=== PATIENT | male | born 1970 | race Caucasian/White ===

== ENCOUNTER 2021-07-16 12:07 | Inpatient (IN) | payer OTHER ==
[2021-07-16] MEDS ORDERED: MAGNESIUM CITRATE 300 ML BOTTLE PO PRN (12:53)
[2021-07-16] MEDS ORDERED: MAG HYDROX/AL HYDROX/SIMETH 30 ML UNIT-DOSE CUP PO PRN (12:53)
[2021-07-16] MEDS ORDERED: BISMUTH SUBSALICYLATE 262 MG/15 ML BTL PO PRN (12:53)
[2021-07-16] MEDS ORDERED: ACETAMINOPHEN 325 MG TABLET (FP) PO PRN ×2 (12:53)
[2021-07-16] MEDS ORDERED: IBUPROFEN 400 MG TABLET (FP) PO PRN (12:53)
[2021-07-16] MEDS ORDERED: chlordiazePOXIDE HCL 25 MG CAPSULE PO PRN (12:53)
[2021-07-16] MEDS ORDERED: MAGNESIUM HYDROX 2400MG/30ML ORAL SUSPENSION 30 ML CUP PO PRN (12:53)
[2021-07-16] MEDS ORDERED: MENTHOL/PHENOL 1 EACH UD MM PRN (12:53)
[2021-07-16] MEDS ORDERED: LOPERAMIDE HCL 2 MG CAPSULE PO PRN (12:53)
[2021-07-16 13:35] VITALS: BMI 27.8
[2021-07-16] MEDS: PRENATAL VITAMINS W/ FOLIC ACID TABLET (FP) PO SCH (14:29)
[2021-07-16] MEDS: METHOCARBAMOL 500 MG TABLET PO PRN ×2 (14:30→18:20)
[2021-07-16] MEDS: hydrOXYzine PAMOATE 25 MG CAPSULE (FP) PO SCH ×3 (14:32→23:04)
[2021-07-16] MEDS: NICOTINE 7 MG/24 HOURS TOPICAL PATCH TD SCH (14:33)
[2021-07-16] MEDS: chlordiazePOXIDE HCL 25 MG CAPSULE PO SCH ×2 (17:21→23:04)
[2021-07-16 17:49] LABS: HEMATOCRIT 43.4 % (35.4-49); HEMOGLOBIN 14.1 GM/dL (11.7-16.9); MCHC 32.5 g/dl (32.0-35.9); MEAN CELL VOLUME 89.1 fl (80-96); MEAN PLT VOLUME 8.5 fl (7.5-11.1); PLATELET COUNT 333 10^3/uL (134-434); RBC 4.87 M/mm3 (4.00-5.60); RDW 14.6 % (11.9-15.9); WHITE BLOOD COUNT 6.9 K/mm3 (4.0-10.0)
[2021-07-16 17:52] LABS: CALCIUM 9.4 mg/dL (8.5-10.1)
[2021-07-16 17:53] LABS: ALBUMIN 3.9 g/dl (3.4-5.0); BLOOD UREA NITROGEN 11.9 mg/dL (7-18)
[2021-07-16 17:56] LABS: CREATININE 1.2 mg/dL (0.55-1.3)
[2021-07-16 17:58] LABS: BILIRUBIN,TOTAL 0.6 mg/dL (0.2-1); TOT PROT 8.2 g/dl (6.4-8.2)
[2021-07-16] MEDS: THIAMINE HCL 100 MG TABLET (FP) PO SCH (23:04)
[2021-07-16] MEDS: MELATONIN 5 MG TABLETS PO SCH (23:06)
[2021-07-17] MEDS: chlordiazePOXIDE HCL 25 MG CAPSULE PO SCH ×4 (06:30→22:36)
[2021-07-17] MEDS: hydrOXYzine PAMOATE 25 MG CAPSULE (FP) PO SCH ×3 (06:30→13:43)
[2021-07-17] MEDS: METHOCARBAMOL 500 MG TABLET PO PRN (10:08)
[2021-07-17] MEDS: PRENATAL VITAMINS W/ FOLIC ACID TABLET (FP) PO SCH (10:08)
[2021-07-17] MEDS: NICOTINE 7 MG/24 HOURS TOPICAL PATCH TD SCH (10:10)
[2021-07-17] MEDS ORDERED: methaDONE HCL 10 MG TABLET PO SCH (14:00)
[2021-07-17] MEDS ORDERED: methaDONE HCL 10 MG TABLET ONE (14:13)
[2021-07-17] MEDS ORDERED: methaDONE HCL 40 MG DISPERSABLE TABLET ONE (14:14)
[2021-07-17] MEDS: NICOTINE 10 MG CARTRIDGE (INHALER) IH PRN (14:24)
[2021-07-17] MEDS ORDERED: SUVOREXANT 10 MG TABLET PO PRN (22:00)
[2021-07-17] MEDS: THIAMINE HCL 100 MG TABLET (FP) PO SCH (22:35)
[2021-07-17] MEDS: hydrOXYzine PAMOATE 25 MG CAPSULE (FP) PO PRN (22:36)
[2021-07-17] MEDS: MELATONIN 5 MG TABLETS PO SCH (22:43)
[2021-07-18] MEDS ORDERED: methaDONE HCL 10 MG TABLET ONE (04:15)
[2021-07-18] MEDS ORDERED: methaDONE HCL 40 MG DISPERSABLE TABLET ONE (04:16)
[2021-07-18] MEDS: chlordiazePOXIDE HCL 25 MG CAPSULE PO SCH ×4 (05:20→22:32)
[2021-07-18] MEDS: METHOCARBAMOL 500 MG TABLET PO PRN (10:12)
[2021-07-18] MEDS: PRENATAL VITAMINS W/ FOLIC ACID TABLET (FP) PO SCH (10:12)
[2021-07-18] MEDS: ONDANSETRON *ODT* 4 MG TABLET SL PRN (10:13)
[2021-07-18] MEDS: NICOTINE 7 MG/24 HOURS TOPICAL PATCH TD SCH (10:15)
[2021-07-18 10:25] LABS: SGOT/AST 116 U/L (15-37); SGPT/ALT 171 U/L (13-61)
[2021-07-18 14:08] LABS: SARS-CoV-2 NAA Not Detected (Not Detected)
[2021-07-18] MEDS: hydrOXYzine PAMOATE 25 MG CAPSULE (FP) PO PRN (18:07)
[2021-07-18] MEDS: THIAMINE HCL 100 MG TABLET (FP) PO SCH (22:32)
[2021-07-18] MEDS: MELATONIN 5 MG TABLETS PO SCH (22:32)
[2021-07-18] MEDS: SUVOREXANT 15 MG TABLET PO PRN (22:34)
[2021-07-19] MEDS ORDERED: chlordiazePOXIDE HCL 10 MG CAPSULE PO PRN
[2021-07-19] MEDS ORDERED: methaDONE HCL 10 MG TABLET ONE (04:08)
[2021-07-19] MEDS ORDERED: methaDONE HCL 40 MG DISPERSABLE TABLET ONE (04:09)
[2021-07-19] MEDS: chlordiazePOXIDE HCL 10 MG CAPSULE PO SCH ×4 (05:36→22:20)
[2021-07-19] MEDS: hydrOXYzine PAMOATE 25 MG CAPSULE (FP) PO PRN ×2 (10:17→17:54)
[2021-07-19] MEDS: NICOTINE 7 MG/24 HOURS TOPICAL PATCH TD SCH (10:17)
[2021-07-19] MEDS: PRENATAL VITAMINS W/ FOLIC ACID TABLET (FP) PO SCH (10:17)
[2021-07-19] MEDS: METHOCARBAMOL 500 MG TABLET PO PRN (10:19)
[2021-07-19] MEDS: ONDANSETRON *ODT* 4 MG TABLET SL PRN (12:38)
[2021-07-19] MEDS: NICOTINE 10 MG CARTRIDGE (INHALER) IH PRN (12:39)
[2021-07-19] MEDS: THIAMINE HCL 100 MG TABLET (FP) PO SCH (22:20)
[2021-07-19] MEDS: MELATONIN 5 MG TABLETS PO SCH (22:20)
[2021-07-20] MEDS ORDERED: methaDONE HCL 10 MG TABLET ONE (05:32)
[2021-07-20] MEDS ORDERED: methaDONE HCL 40 MG DISPERSABLE TABLET ONE (05:32)
[2021-07-20] MEDS: chlordiazePOXIDE HCL 10 MG CAPSULE PO SCH ×2 (05:33→17:39)
[2021-07-20] MEDS: NICOTINE 7 MG/24 HOURS TOPICAL PATCH TD SCH (10:25)
[2021-07-20] MEDS: PRENATAL VITAMINS W/ FOLIC ACID TABLET (FP) PO SCH (10:25)
[2021-07-20] MEDS: METHOCARBAMOL 500 MG TABLET PO PRN (10:25)
[2021-07-20] MEDS: hydrOXYzine PAMOATE 25 MG CAPSULE (FP) PO PRN (10:25)
[2021-07-20] MEDS: NICOTINE 10 MG CARTRIDGE (INHALER) IH PRN (10:26)
[2021-07-20] MEDS: SUVOREXANT 15 MG TABLET PO PRN (22:09)
[2021-07-20] MEDS: THIAMINE HCL 100 MG TABLET (FP) PO SCH (22:11)
[2021-07-20] MEDS: MELATONIN 5 MG TABLETS PO SCH (22:11)
[2021-07-21] MEDS ORDERED: methaDONE HCL 10 MG TABLET ONE (03:22)
[2021-07-21] MEDS ORDERED: methaDONE HCL 40 MG DISPERSABLE TABLET ONE (03:23)
[2021-07-21] MEDS ORDERED: chlordiazePOXIDE HCL 10 MG CAPSULE PO ONE (05:00)
[2021-07-21 09:04] VITALS: BP 119/88; PULSE 76; TEMP 97.3
[2021-07-21] MEDS: PRENATAL VITAMINS W/ FOLIC ACID TABLET (FP) PO SCH (10:26)
[2021-07-21] MEDS: NICOTINE 7 MG/24 HOURS TOPICAL PATCH TD SCH (10:26)
[2021-07-21] MEDS: NICOTINE 10 MG CARTRIDGE (INHALER) IH PRN (10:28)
== END 2021-07-21 12:35 | disposition other institution (70) | DRG 897 ==
LOC: YASAS 12:07 → Y6N 14:05
PROVIDERS: ADMIT Allergy & Immunology; ATTEND Allergy & Immunology
PROC: HZ2ZZZZ Detoxification Services for Substance Abuse Treatment (ICD-10-PCS; principal; 2021-07-16)
DX: F10.230 Alcohol dependence with withdrawal, uncomplicated (principal); F11.20 Opioid dependence, uncomplicated; F14.20 Cocaine dependence, uncomplicated; F13.20 Sedative, hypnotic or anxiolytic dependence, uncomplicated; F17.210 Nicotine dependence, cigarettes, uncomplicated; F19.24 Other psychoactive substance dependence with psychoactive substance-induced mood disorder; F43.10 Post-traumatic stress disorder, unspecified; R76.11 Nonspecific reaction to tuberculin skin test without active tuberculosis; R74.01 Elevation of levels of liver transaminase levels; Z62.810 Personal history of physical and sexual abuse in childhood
CPT/HCPCS: 36415; 71046-TC-FY; 80053; 82962; 84450; 84460; 85027; 86780; 87811; 93005; 93010; C9803-CS; Q0162; U0003; U0005

== ENCOUNTER 2021-07-21 12:53 | Inpatient (IN) | payer OTHER ==
[2021-07-21] MEDS ORDERED: MAGNESIUM CITRATE 300 ML BOTTLE PO PRN (12:56)
[2021-07-21] MEDS ORDERED: P-EPHED 60MG/TRIPROLIDI 2.5MG TABLET PO PRN (12:56)
[2021-07-21] MEDS ORDERED: guaiFENesin 200 MG/10 ML 10 ML UNIT-DOSE CUPS PO PRN (12:56)
[2021-07-21] MEDS ORDERED: LOPERAMIDE HCL 2 MG CAPSULE PO PRN (12:56)
[2021-07-21] MEDS ORDERED: MAGNESIUM HYDROX 2400MG/30ML ORAL SUSPENSION 30 ML CUP PO PRN (12:56)
[2021-07-21] MEDS ORDERED: IBUPROFEN 400 MG TABLET (FP) PO PRN (12:56)
[2021-07-21] MEDS ORDERED: MAG HYDROX/AL HYDROX/SIMETH 30 ML UNIT-DOSE CUP PO PRN (12:56)
[2021-07-21] MEDS: hydrOXYzine PAMOATE 25 MG CAPSULE (FP) PO SCH ×3 (14:14→21:39)
[2021-07-21] MEDS: MELATONIN 5 MG TABLETS PO SCH (21:22)
[2021-07-21] MEDS: THIAMINE HCL 100 MG TABLET (FP) PO SCH (21:22)
[2021-07-22] MEDS ORDERED: methaDONE HCL 10 MG TABLET ONE (04:41)
[2021-07-22] MEDS ORDERED: methaDONE HCL 40 MG DISPERSABLE TABLET ONE (04:41)
[2021-07-22] MEDS ORDERED: methaDONE HCL 40 MG DISPERSABLE TABLET PO SCH (06:00)
[2021-07-22] MEDS: hydrOXYzine PAMOATE 25 MG CAPSULE (FP) PO SCH ×2 (06:31→10:09)
[2021-07-22] MEDS: NICOTINE 7 MG/24 HOURS TOPICAL PATCH TD SCH (10:09)
[2021-07-22] MEDS: PRENATAL VITAMINS W/ FOLIC ACID TABLET (FP) PO SCH (10:09)
[2021-07-22] MEDS: NICOTINE 10 MG CARTRIDGE (INHALER) IH PRN (10:09)
[2021-07-22] MEDS ORDERED: hydrOXYzine PAMOATE 25 MG CAPSULE (FP) PO PRN (11:04)
[2021-07-22] MEDS: THIAMINE HCL 100 MG TABLET (FP) PO SCH (21:37)
[2021-07-22] MEDS: MELATONIN 5 MG TABLETS PO SCH (21:37)
[2021-07-23] MEDS ORDERED: methaDONE HCL 10 MG TABLET ONE (05:10)
[2021-07-23] MEDS ORDERED: methaDONE HCL 40 MG DISPERSABLE TABLET ONE (05:10)
[2021-07-23] MEDS: NICOTINE 7 MG/24 HOURS TOPICAL PATCH TD SCH (11:36)
[2021-07-23] MEDS: PRENATAL VITAMINS W/ FOLIC ACID TABLET (FP) PO SCH (11:36)
[2021-07-23] MEDS: NICOTINE 10 MG CARTRIDGE (INHALER) IH PRN (12:04)
[2021-07-23] MEDS: THIAMINE HCL 100 MG TABLET (FP) PO SCH (21:08)
[2021-07-23] MEDS: MELATONIN 5 MG TABLETS PO SCH (21:08)
[2021-07-24] MEDS ORDERED: methaDONE HCL 10 MG TABLET ONE (03:37)
[2021-07-24] MEDS ORDERED: methaDONE HCL 40 MG DISPERSABLE TABLET ONE (03:38)
[2021-07-24] MEDS: NICOTINE 10 MG CARTRIDGE (INHALER) IH PRN ×2 (10:43→17:07)
[2021-07-24] MEDS: NICOTINE 7 MG/24 HOURS TOPICAL PATCH TD SCH (10:43)
[2021-07-24] MEDS: PRENATAL VITAMINS W/ FOLIC ACID TABLET (FP) PO SCH (10:43)
[2021-07-24] MEDS: THIAMINE HCL 100 MG TABLET (FP) PO SCH (21:12)
[2021-07-24] MEDS: MELATONIN 5 MG TABLETS PO SCH (21:12)
[2021-07-25] MEDS ORDERED: methaDONE HCL 10 MG TABLET ONE (03:56)
[2021-07-25] MEDS ORDERED: methaDONE HCL 40 MG DISPERSABLE TABLET ONE (03:56)
[2021-07-25 07:07] LABS: SARS-CoV-2 NAA Not Detected (Not Detected)
[2021-07-25] MEDS: PRENATAL VITAMINS W/ FOLIC ACID TABLET (FP) PO SCH (09:44)
[2021-07-25] MEDS: NICOTINE 7 MG/24 HOURS TOPICAL PATCH TD SCH (09:44)
[2021-07-25] MEDS: NICOTINE 10 MG CARTRIDGE (INHALER) IH PRN (09:45)
[2021-07-25] MEDS ORDERED: PERMETHRIN 5% TOPICAL CREAM 60 GM TUBE TP ONE ×2 (13:15→20:00)
[2021-07-25] MEDS ORDERED: MINERAL OIL/PETROLAT/WATER TOPICAL CREAM 454 GM JAR TP PRN (13:16)
[2021-07-25] MEDS: hydrOXYzine PAMOATE 25 MG CAPSULE (FP) PO SCH ×4 (15:00→21:15)
[2021-07-25] MEDS: MINERAL OIL/PETROLAT/WATER TOPICAL CREAM 113 GM JAR TP SCH ×2 (15:23→21:16)
[2021-07-25] MEDS: THIAMINE HCL 100 MG TABLET (FP) PO SCH (21:15)
[2021-07-25] MEDS: MELATONIN 5 MG TABLETS PO SCH (21:15)
[2021-07-26] MEDS ORDERED: methaDONE HCL 10 MG TABLET ONE (03:36)
[2021-07-26] MEDS ORDERED: methaDONE HCL 40 MG DISPERSABLE TABLET ONE (03:37)
[2021-07-26] MEDS: hydrOXYzine PAMOATE 25 MG CAPSULE (FP) PO SCH ×2 (05:58→10:19)
[2021-07-26] MEDS: PRENATAL VITAMINS W/ FOLIC ACID TABLET (FP) PO SCH (10:19)
[2021-07-26] MEDS: MINERAL OIL/PETROLAT/WATER TOPICAL CREAM 113 GM JAR TP SCH ×3 (10:20→21:25)
[2021-07-26] MEDS: NICOTINE 7 MG/24 HOURS TOPICAL PATCH TD SCH (10:20)
[2021-07-26] MEDS ORDERED: ONDANSETRON *ODT* 4 MG TABLET SL ONE (11:30)
[2021-07-26] MEDS: MELATONIN 5 MG TABLETS PO SCH (21:25)
[2021-07-26] MEDS: THIAMINE HCL 100 MG TABLET (FP) PO SCH (21:26)
[2021-07-27] MEDS ORDERED: methaDONE HCL 40 MG DISPERSABLE TABLET ONE (04:11)
[2021-07-27] MEDS ORDERED: methaDONE HCL 10 MG TABLET ONE (04:11)
[2021-07-27] MEDS: COLLOIDAL OATMEAL 1 BAR EACH TP PRN (07:27)
[2021-07-27] MEDS: PRENATAL VITAMINS W/ FOLIC ACID TABLET (FP) PO SCH ×2 (10:26→10:28)
[2021-07-27] MEDS: NICOTINE 7 MG/24 HOURS TOPICAL PATCH TD SCH (10:26)
[2021-07-27] MEDS: MINERAL OIL/PETROLAT/WATER TOPICAL CREAM 113 GM JAR TP SCH ×2 (10:26→21:41)
[2021-07-27] MEDS: NICOTINE 10 MG CARTRIDGE (INHALER) IH PRN (10:28)
[2021-07-27] MEDS: THIAMINE HCL 100 MG TABLET (FP) PO SCH (21:42)
[2021-07-27] MEDS: MELATONIN 5 MG TABLETS PO SCH (21:42)
[2021-07-28] MEDS ORDERED: methaDONE HCL 40 MG DISPERSABLE TABLET ONE (05:10)
[2021-07-28] MEDS ORDERED: methaDONE HCL 10 MG TABLET ONE (05:10)
[2021-07-28] MEDS: MINERAL OIL/PETROLAT/WATER TOPICAL CREAM 113 GM JAR TP SCH ×2 (09:25→21:29)
[2021-07-28] MEDS: PRENATAL VITAMINS W/ FOLIC ACID TABLET (FP) PO SCH (09:25)
[2021-07-28] MEDS: NICOTINE 7 MG/24 HOURS TOPICAL PATCH TD SCH (09:26)
[2021-07-28] MEDS: NICOTINE 10 MG CARTRIDGE (INHALER) IH PRN (16:52)
[2021-07-28] MEDS: MELATONIN 5 MG TABLETS PO SCH (21:29)
[2021-07-28] MEDS: THIAMINE HCL 100 MG TABLET (FP) PO SCH (21:29)
[2021-07-29] MEDS ORDERED: methaDONE HCL 40 MG DISPERSABLE TABLET ONE (04:04)
[2021-07-29] MEDS ORDERED: methaDONE HCL 10 MG TABLET ONE (04:04)
[2021-07-29] MEDS: NICOTINE 10 MG CARTRIDGE (INHALER) IH PRN ×2 (06:26→10:34)
[2021-07-29] MEDS: MINERAL OIL/PETROLAT/WATER TOPICAL CREAM 113 GM JAR TP SCH ×2 (10:33→21:36)
[2021-07-29] MEDS: PRENATAL VITAMINS W/ FOLIC ACID TABLET (FP) PO SCH (10:33)
[2021-07-29] MEDS: NICOTINE 7 MG/24 HOURS TOPICAL PATCH TD SCH (10:34)
[2021-07-29] MEDS ORDERED: BACITRACIN 15 GM TUBE TOPICAL OINTMENT TP SCH (13:30)
[2021-07-29] MEDS ORDERED: BACITRACIN 0.9 GM PACKET TP SCH (14:15)
[2021-07-29] MEDS: THIAMINE HCL 100 MG TABLET (FP) PO SCH (21:35)
[2021-07-29] MEDS: MELATONIN 5 MG TABLETS PO SCH (21:35)
[2021-07-29] MEDS: COLLOIDAL OATMEAL 1 BAR EACH TP PRN (21:37)
[2021-07-30] MEDS ORDERED: methaDONE HCL 10 MG TABLET ONE (05:19)
[2021-07-30] MEDS ORDERED: methaDONE HCL 40 MG DISPERSABLE TABLET ONE (05:19)
[2021-07-30 07:06] VITALS: BP 143/97; PULSE 77; TEMP 98.1
== END 2021-07-30 09:36 | disposition home or self-care (01) | DRG 895 ==
LOC: YASAS 12:53 → Y3W 12:54
PROVIDERS: ADMIT Allergy & Immunology; ATTEND Allergy & Immunology
PROC: HZ42ZZZ Group Counseling for Substance Abuse Treatment, Cognitive-Behavioral (ICD-10-PCS; principal; 2021-07-21)
DX: F10.20 Alcohol dependence, uncomplicated (principal); F11.20 Opioid dependence, uncomplicated; F14.20 Cocaine dependence, uncomplicated; F17.210 Nicotine dependence, cigarettes, uncomplicated; J34.89 Other specified disorders of nose and nasal sinuses; L53.9 Erythematous condition, unspecified; R74.01 Elevation of levels of liver transaminase levels
CPT/HCPCS: 36415; 84450; C9803-CS; Q0162; U0003; U0005

== ENCOUNTER 2023-02-04 18:44 | Inpatient (IN) | payer OTHER ==
[2023-02-04 19:54] VITALS: BMI 25.7
[2023-02-05] MEDS ORDERED: COLLOIDAL OATMEAL 1 BAR EACH TP PRN (00:04)
[2023-02-05] MEDS ORDERED: BENZONATATE 200 MG CAPSULE PO PRN (00:04)
[2023-02-05] MEDS ORDERED: BENZOCAINE/MENTHOL (CHLORASEPTIC ) LOZENGE MM PRN (00:04)
[2023-02-05] MEDS ORDERED: hydrOXYzine PAMOATE 25 MG CAPSULE (FP) PO PRN (00:04)
[2023-02-05] MEDS ORDERED: METHOCARBAMOL 500 MG TABLET PO PRN (00:04)
[2023-02-05] MEDS ORDERED: IBUPROFEN 600 MG TABLET (FP) PO PRN (00:04)
[2023-02-05] MEDS ORDERED: P-EPHED 60MG/TRIPROLIDI 2.5MG TABLET PO PRN (00:04)
[2023-02-05] MEDS ORDERED: NALOXONE HCL (KLOXXADO) 8 MG SPRAY NS PRN (00:04)
[2023-02-05] MEDS ORDERED: POLYETHYLENE GLYCOL (HEALTHYLAX) 3350 17 GM PACKET PO PRN (00:04)
[2023-02-05] MEDS ORDERED: guaiFENesin 600 MG TABLET.ER (FP) PO PRN (00:04)
[2023-02-05] MEDS ORDERED: NICOTINE POLACRILEX 2 MG GUM BUC PRN (00:04)
[2023-02-05] MEDS ORDERED: NALOXONE HCL 0.4 MG/ML VIAL IVPUSH PRN (00:04)
[2023-02-05] MEDS ORDERED: ACETAMINOPHEN 325 MG TABLET (FP) PO PRN (00:04)
[2023-02-05] MEDS ORDERED: MAG HYDROX/AL HYDROX/SIMETH 30 ML UNIT-DOSE CUP PO PRN (00:04)
[2023-02-05] MEDS ORDERED: LOPERAMIDE HCL 2 MG CAPSULE PO PRN (00:04)
[2023-02-05] MEDS ORDERED: MAGNESIUM HYDROX 2400MG/30ML ORAL SUSPENSION 30 ML CUP PO PRN (00:04)
[2023-02-05] MEDS ORDERED: IBUPROFEN 400 MG TABLET (FP) PO PRN (00:04)
[2023-02-05] MEDS ORDERED: methaDONE HCL 10 MG TABLET PO SCH (08:15)
[2023-02-05] MEDS: PRENATAL VITAMINS W/ FOLIC ACID TABLET (FP) PO SCH (09:04)
[2023-02-05] MEDS: clonazePAM 0.5 MG ODT TABLETS SL SCH ×2 (11:05→21:20)
[2023-02-05] MEDS: MELATONIN 5 MG TABLETS PO SCH (21:21)
[2023-02-05] MEDS: THIAMINE HCL 100 MG TABLET (FP) PO SCH (21:21)
[2023-02-05] MEDS ORDERED: MELATONIN 5 MG TABLETS PO SCH (22:00)
[2023-02-06] MEDS: PRENATAL VITAMINS W/ FOLIC ACID TABLET (FP) PO SCH (09:57)
[2023-02-06] MEDS: clonazePAM 0.5 MG ODT TABLETS SL SCH ×2 (09:58→21:28)
[2023-02-06] MEDS: MELATONIN 5 MG TABLETS PO SCH (21:28)
[2023-02-06] MEDS: THIAMINE HCL 100 MG TABLET (FP) PO SCH (21:29)
[2023-02-07] MEDS: PRENATAL VITAMINS W/ FOLIC ACID TABLET (FP) PO SCH (10:28)
[2023-02-07] MEDS: clonazePAM 0.5 MG ODT TABLETS SL SCH ×2 (10:28→21:38)
[2023-02-07] MEDS: TENOFOVIR ALAFENAMIDE 25 MG PO SCH (10:58)
[2023-02-07] MEDS: MELATONIN 5 MG TABLETS PO SCH (21:36)
[2023-02-07] MEDS: THIAMINE HCL 100 MG TABLET (FP) PO SCH (21:38)
[2023-02-08] MEDS: TENOFOVIR ALAFENAMIDE 25 MG PO SCH (07:04)
[2023-02-08] MEDS: PRENATAL VITAMINS W/ FOLIC ACID TABLET (FP) PO SCH (10:03)
[2023-02-08] MEDS: clonazePAM 0.5 MG ODT TABLETS SL SCH ×2 (10:03→21:31)
[2023-02-08] MEDS: MELATONIN 5 MG TABLETS PO SCH (21:31)
[2023-02-08] MEDS: THIAMINE HCL 100 MG TABLET (FP) PO SCH (21:31)
[2023-02-09] MEDS: TENOFOVIR ALAFENAMIDE 25 MG PO SCH (07:03)
[2023-02-09] MEDS: clonazePAM 0.5 MG ODT TABLETS SL SCH ×2 (10:00→21:26)
[2023-02-09] MEDS: PRENATAL VITAMINS W/ FOLIC ACID TABLET (FP) PO SCH (10:00)
[2023-02-09] MEDS: CEPHALEXIN MONOHYDRATE 500 MG CAPSULE (UD) PO SCH ×2 (12:31→21:26)
[2023-02-09] MEDS: THIAMINE HCL 100 MG TABLET (FP) PO SCH (21:26)
[2023-02-09] MEDS: MELATONIN 5 MG TABLETS PO SCH (21:27)
[2023-02-09] MEDS: BACITRACIN 0.9 GM PACKET TP SCH (21:27)
[2023-02-10] MEDS: TENOFOVIR ALAFENAMIDE 25 MG PO SCH (07:05)
[2023-02-10] MEDS: clonazePAM 0.5 MG ODT TABLETS SL SCH ×2 (09:52→21:24)
[2023-02-10] MEDS: PRENATAL VITAMINS W/ FOLIC ACID TABLET (FP) PO SCH (09:52)
[2023-02-10] MEDS: BACITRACIN 0.9 GM PACKET TP SCH ×2 (09:53→21:24)
[2023-02-10] MEDS: CEPHALEXIN MONOHYDRATE 500 MG CAPSULE (UD) PO SCH (09:53)
[2023-02-10] MEDS: MELATONIN 5 MG TABLETS PO SCH (21:24)
[2023-02-10] MEDS: THIAMINE HCL 100 MG TABLET (FP) PO SCH (21:24)
[2023-02-11] MEDS: TENOFOVIR ALAFENAMIDE 25 MG PO SCH (07:02)
[2023-02-11] MEDS: PRENATAL VITAMINS W/ FOLIC ACID TABLET (FP) PO SCH (09:53)
[2023-02-11] MEDS: clonazePAM 0.5 MG ODT TABLETS SL SCH ×2 (09:53→21:02)
[2023-02-11] MEDS: BACITRACIN 0.9 GM PACKET TP SCH ×2 (09:54→21:02)
[2023-02-11] MEDS: MELATONIN 5 MG TABLETS PO SCH (21:02)
[2023-02-11] MEDS: THIAMINE HCL 100 MG TABLET (FP) PO SCH (21:02)
[2023-02-12] MEDS: TENOFOVIR ALAFENAMIDE 25 MG PO SCH (07:01)
[2023-02-12] MEDS: clonazePAM 0.5 MG ODT TABLETS SL SCH ×2 (10:05→21:31)
[2023-02-12] MEDS: BACITRACIN 0.9 GM PACKET TP SCH ×2 (10:08→21:31)
[2023-02-12] MEDS: PRENATAL VITAMINS W/ FOLIC ACID TABLET (FP) PO SCH (10:09)
[2023-02-12] MEDS: THIAMINE HCL 100 MG TABLET (FP) PO SCH (21:31)
[2023-02-12] MEDS: MELATONIN 5 MG TABLETS PO SCH (21:31)
[2023-02-13] MEDS: TENOFOVIR ALAFENAMIDE 25 MG PO SCH (07:12)
[2023-02-13] MEDS: clonazePAM 0.5 MG ODT TABLETS SL SCH ×2 (10:02→21:23)
[2023-02-13] MEDS: PRENATAL VITAMINS W/ FOLIC ACID TABLET (FP) PO SCH (10:02)
[2023-02-13] MEDS: BACITRACIN 0.9 GM PACKET TP SCH ×2 (10:03→21:23)
[2023-02-13] MEDS: THIAMINE HCL 100 MG TABLET (FP) PO SCH (21:23)
[2023-02-13] MEDS: MELATONIN 5 MG TABLETS PO SCH (21:23)
[2023-02-14] MEDS: TENOFOVIR ALAFENAMIDE 25 MG PO SCH (07:03)
[2023-02-14] MEDS: PRENATAL VITAMINS W/ FOLIC ACID TABLET (FP) PO SCH (09:59)
[2023-02-14] MEDS: clonazePAM 0.5 MG ODT TABLETS SL SCH ×2 (09:59→22:05)
[2023-02-14] MEDS: BACITRACIN 0.9 GM PACKET TP SCH ×2 (10:00→22:05)
[2023-02-14] MEDS: MELATONIN 5 MG TABLETS PO SCH (22:05)
[2023-02-14] MEDS: THIAMINE HCL 100 MG TABLET (FP) PO SCH (22:05)
[2023-02-15] MEDS: TENOFOVIR ALAFENAMIDE 25 MG PO SCH (07:02)
[2023-02-15] MEDS: PRENATAL VITAMINS W/ FOLIC ACID TABLET (FP) PO SCH (10:01)
[2023-02-15] MEDS: clonazePAM 0.5 MG ODT TABLETS SL SCH ×2 (10:02→21:11)
[2023-02-15] MEDS: BACITRACIN 0.9 GM PACKET TP SCH ×2 (10:02→21:11)
[2023-02-15] MEDS: MELATONIN 5 MG TABLETS PO SCH (21:10)
[2023-02-15] MEDS: THIAMINE HCL 100 MG TABLET (FP) PO SCH (21:11)
[2023-02-16] MEDS: TENOFOVIR ALAFENAMIDE 25 MG PO SCH (07:03)
[2023-02-16] MEDS: PRENATAL VITAMINS W/ FOLIC ACID TABLET (FP) PO SCH (10:13)
[2023-02-16] MEDS: clonazePAM 0.5 MG ODT TABLETS SL SCH ×2 (10:13→21:24)
[2023-02-16] MEDS: BACITRACIN 0.9 GM PACKET TP SCH ×2 (10:14→21:24)
[2023-02-16] MEDS: THIAMINE HCL 100 MG TABLET (FP) PO SCH (21:24)
[2023-02-16] MEDS: MELATONIN 5 MG TABLETS PO SCH (21:24)
[2023-02-17] MEDS: TENOFOVIR ALAFENAMIDE 25 MG PO SCH (07:54)
[2023-02-17] MEDS: clonazePAM 0.5 MG ODT TABLETS SL SCH ×2 (10:04→21:17)
[2023-02-17] MEDS: PRENATAL VITAMINS W/ FOLIC ACID TABLET (FP) PO SCH (10:04)
[2023-02-17] MEDS: BACITRACIN 0.9 GM PACKET TP SCH ×2 (10:05→21:17)
[2023-02-17] MEDS: MELATONIN 5 MG TABLETS PO SCH (21:17)
[2023-02-17] MEDS: THIAMINE HCL 100 MG TABLET (FP) PO SCH (21:17)
[2023-02-18] MEDS: TENOFOVIR ALAFENAMIDE 25 MG PO SCH (07:05)
[2023-02-18] MEDS: clonazePAM 0.5 MG ODT TABLETS SL SCH ×2 (09:10→21:05)
[2023-02-18] MEDS: BACITRACIN 0.9 GM PACKET TP SCH ×2 (09:11→21:04)
[2023-02-18] MEDS: PRENATAL VITAMINS W/ FOLIC ACID TABLET (FP) PO SCH (09:11)
[2023-02-18] MEDS: MELATONIN 5 MG TABLETS PO SCH (21:04)
[2023-02-18] MEDS: THIAMINE HCL 100 MG TABLET (FP) PO SCH (21:05)
[2023-02-19] MEDS: TENOFOVIR ALAFENAMIDE 25 MG PO SCH (07:01)
[2023-02-19] MEDS: PRENATAL VITAMINS W/ FOLIC ACID TABLET (FP) PO SCH (10:25)
[2023-02-19] MEDS: clonazePAM 0.5 MG ODT TABLETS SL SCH ×2 (10:26→21:33)
[2023-02-19] MEDS: BACITRACIN 0.9 GM PACKET TP SCH ×2 (10:26→21:32)
[2023-02-19] MEDS: MELATONIN 5 MG TABLETS PO SCH (21:32)
[2023-02-19] MEDS: THIAMINE HCL 100 MG TABLET (FP) PO SCH (21:32)
[2023-02-20] MEDS: TENOFOVIR ALAFENAMIDE 25 MG PO SCH (07:06)
[2023-02-20] MEDS: clonazePAM 0.5 MG ODT TABLETS SL SCH ×2 (10:12→21:26)
[2023-02-20] MEDS: BACITRACIN 0.9 GM PACKET TP SCH ×2 (10:13→21:26)
[2023-02-20] MEDS: PRENATAL VITAMINS W/ FOLIC ACID TABLET (FP) PO SCH (10:13)
[2023-02-20] MEDS: THIAMINE HCL 100 MG TABLET (FP) PO SCH (21:26)
[2023-02-20] MEDS: MELATONIN 5 MG TABLETS PO SCH (21:26)
[2023-02-21] MEDS: TENOFOVIR ALAFENAMIDE 25 MG PO SCH (07:14)
[2023-02-21] MEDS: BACITRACIN 0.9 GM PACKET TP SCH ×2 (10:10→21:10)
[2023-02-21] MEDS: clonazePAM 0.5 MG ODT TABLETS SL SCH ×2 (10:10→21:11)
[2023-02-21] MEDS: PRENATAL VITAMINS W/ FOLIC ACID TABLET (FP) PO SCH (10:10)
[2023-02-21] MEDS: THIAMINE HCL 100 MG TABLET (FP) PO SCH (21:11)
[2023-02-21] MEDS: MELATONIN 5 MG TABLETS PO SCH (21:11)
[2023-02-22] MEDS: TENOFOVIR ALAFENAMIDE 25 MG PO SCH (07:28)
[2023-02-22] MEDS: clonazePAM 0.5 MG ODT TABLETS SL SCH ×2 (10:03→21:15)
[2023-02-22] MEDS: BACITRACIN 0.9 GM PACKET TP SCH ×2 (10:03→21:13)
[2023-02-22] MEDS: PRENATAL VITAMINS W/ FOLIC ACID TABLET (FP) PO SCH (10:03)
[2023-02-22] MEDS: THIAMINE HCL 100 MG TABLET (FP) PO SCH (21:13)
[2023-02-22] MEDS: MELATONIN 5 MG TABLETS PO SCH (21:13)
[2023-02-23] MEDS: TENOFOVIR ALAFENAMIDE 25 MG PO SCH (07:11)
[2023-02-23] MEDS: PRENATAL VITAMINS W/ FOLIC ACID TABLET (FP) PO SCH (10:11)
[2023-02-23] MEDS: BACITRACIN 0.9 GM PACKET TP SCH ×2 (10:11→21:37)
[2023-02-23] MEDS: clonazePAM 0.5 MG ODT TABLETS SL SCH ×2 (10:12→21:37)
[2023-02-23] MEDS: THIAMINE HCL 100 MG TABLET (FP) PO SCH (21:37)
[2023-02-23] MEDS: MELATONIN 5 MG TABLETS PO SCH (21:37)
[2023-02-24] MEDS: TENOFOVIR ALAFENAMIDE 25 MG PO SCH (07:08)
[2023-02-24] MEDS: PRENATAL VITAMINS W/ FOLIC ACID TABLET (FP) PO SCH (10:04)
[2023-02-24] MEDS: clonazePAM 0.5 MG ODT TABLETS SL SCH ×2 (10:05→21:09)
[2023-02-24] MEDS: BACITRACIN 0.9 GM PACKET TP SCH ×2 (10:05→21:09)
[2023-02-24] MEDS: MELATONIN 5 MG TABLETS PO SCH (21:09)
[2023-02-24] MEDS: THIAMINE HCL 100 MG TABLET (FP) PO SCH (21:09)
[2023-02-25 07:13] VITALS: BP 112/74; PULSE 65; RESP 18; TEMP 97.5
[2023-02-25] MEDS: TENOFOVIR ALAFENAMIDE 25 MG PO SCH (07:44)
== END 2023-02-25 08:55 | disposition home or self-care (01) | DRG 895 ==
LOC: YASAS 18:44 → Y5N 23:55
PROVIDERS: ADMIT Allergy & Immunology; ATTEND Psychiatry & Neurology Pain Medicine
PROC: HZ42ZZZ Group Counseling for Substance Abuse Treatment, Cognitive-Behavioral (ICD-10-PCS; principal; 2023-02-04)
DX: F10.20 Alcohol dependence, uncomplicated (principal); F11.20 Opioid dependence, uncomplicated; F14.20 Cocaine dependence, uncomplicated; Z59.00 Homelessness unspecified; F17.210 Nicotine dependence, cigarettes, uncomplicated; B86 Scabies; Z62.810 Personal history of physical and sexual abuse in childhood; Z86.59 Personal history of other mental and behavioral disorders; Z86.19 Personal history of other infectious and parasitic diseases; Z86.11 Personal history of tuberculosis; Z86.79 Personal history of other diseases of the circulatory system; Z56.0 Unemployment, unspecified
CPT/HCPCS: 87635

== ENCOUNTER 2024-07-22 11:51 | Inpatient (IN) | payer OTHER ==
[2024-07-22 12:04] VITALS: BMI 22.6
[2024-07-22] MEDS ORDERED: ACETAMINOPHEN 325 MG TABLET (FP) PO PRN (13:55)
[2024-07-22] MEDS ORDERED: LOPERAMIDE HCL 2 MG CAPSULE PO PRN (13:55)
[2024-07-22] MEDS ORDERED: guaiFENesin 600 MG TABLET.ER (FP) PO PRN (13:55)
[2024-07-22] MEDS ORDERED: POLYETHYLENE GLYCOL (HEALTHYLAX) 3350 17 GM PACKET PO PRN (13:55)
[2024-07-22] MEDS ORDERED: IBUPROFEN 400 MG TABLET (FP) PO PRN (13:55)
[2024-07-22] MEDS ORDERED: BENZONATATE 200 MG CAPSULE PO PRN (13:55)
[2024-07-22] MEDS ORDERED: MAG HYDROX/AL HYDROX/SIMETH 30 ML UNIT-DOSE CUP PO PRN (13:55)
[2024-07-22] MEDS ORDERED: BENZOCAINE/MENTHOL (CHLORASEPTIC ) LOZENGE MM PRN (13:55)
[2024-07-22] MEDS ORDERED: MAGNESIUM HYDROX 2400MG/30ML ORAL SUSPENSION 30 ML CUP PO PRN (13:55)
[2024-07-22] MEDS ORDERED: NALOXONE (NARCAN) HCL 4 MG/0.1 ML SPRAY NS PRN (13:55)
[2024-07-22] MEDS: PRENATAL VITAMINS W/ FOLIC ACID TABLET (FP) PO SCH (15:18)
[2024-07-22] MEDS: THIAMINE 100 MG TABLET PO SCH (22:24)
[2024-07-22] MEDS: MELATONIN 5 MG TABLETS PO SCH (22:24)
[2024-07-23 09:30] LABS: POTASSIUM 4.8 mmol/L (3.5-5.1)
[2024-07-23 09:33] LABS: HEMATOCRIT 39.4 % (40.1-51.0); HEMOGLOBIN 12.2 g/dL (13.7-17.5); MEAN CELL VOLUME 88.1 fl (79.0-92.2); MEAN PLT VOLUME 10.7 fl (9.4-12.4); PLATELET COUNT 344 x10^3/uL (163-337); RDW 16.1 % (12.2-16.1)
[2024-07-23 10:09] LABS: ALBUMIN 3.1 g/dl (3.4-5.0); BLOOD UREA NITROGEN 20.4 mg/dL (7-18)
[2024-07-23 10:13] LABS: BILIRUBIN,TOTAL 0.3 mg/dL (0.2-1); CREATININE 0.9 mg/dL (0.55-1.3); TOT PROT 6.9 g/dl (6.4-8.2)
[2024-07-23] MEDS: clonazePAM 0.5 MG ODT TABLETS SL SCH (11:11)
[2024-07-23 14:03] LABS: HCV DIAGNOSTIC IN-HOUSE W/RFLX REACTIVE (NONREACTIVE)
[2024-07-23 19:52] LABS: SYPHILIS W/ RPR CONF NON-REACTIVE (NONREACTIVE)
[2024-07-23] MEDS: hydrOXYzine PAMOATE 25 MG CAPSULE (FP) PO PRN (22:27)
[2024-07-23] MEDS: SUVOREXANT 10 MG TABLET PO PRN (22:27)
[2024-07-23 23:12] LABS: URINE APPEARANCE Clear; URINE BILIRUBIN Negative (NEGATIVE); URINE COLOR Yellow; URINE GLUCOSE (UA) 3+ (NEGATIVE); URINE KETONE Negative (NEGATIVE); URINE LEUK ESTERASE Negative (NEGATIVE); URINE NITRITE Positive (NEGATIVE); URINE PROTEIN Negative (NEGATIVE); URINE UROBILINOGEN 0.2 mg/dL (0.2-1.0)
[2024-07-24] MEDS ORDERED: methaDONE HCL 10 MG TABLET PO ONE (10:50)
[2024-07-24] MEDS: amLODIPine BESYLATE 5 MG TABLET (FP) PO ONE (14:55)
[2024-07-24] MEDS: LABETALOL HCL 100 MG TABLET (FP) PO ONE (15:02)
[2024-07-24] MEDS: cloNIDine HCL 0.1 MG TABLET PO ONE (15:02)
[2024-07-24] MEDS: NITROFURANTOIN MONOHYD/M-CRYST 100 MG CAPSULE PO ONE (17:43)
[2024-07-24] MEDS: NITROFURANTOIN MONOHYD/M-CRYST 100 MG CAPSULE PO SCH (21:17)
[2024-07-25] MEDS ORDERED: methaDONE HCL 10 MG TABLET PO SCH (07:45)
[2024-07-25 14:50] LABS: HEMATOCRIT 40.3 % (40.1-51.0); HEMOGLOBIN 12.8 g/dL (13.7-17.5); MCHC 31.8 g/dl (32.3-36.5); MEAN CELL VOLUME 86.3 fl (79.0-92.2); MEAN PLT VOLUME 10.3 fl (9.4-12.4); PLATELET COUNT 345 x10^3/uL (163-337)
[2024-07-25 14:57] LABS: POTASSIUM 3.6 mmol/L (3.5-5.1)
[2024-07-25 15:07] LABS: EPI CELLS 8 /uL (0-25.1); HYALINE CASTS 0 /uL (0-3.1); PH,URINE 6.5 (5.0-8.0); URINE APPEARANCE CLEAR; URINE BACTERIA 25 /uL (0-1359); URINE BILIRUBIN NEGATIVE (NEGATIVE); URINE COLOR YELLOW; URINE GLUCOSE (UA) NEGATIVE (NEGATIVE); URINE KETONE NEGATIVE (NEGATIVE); URINE LEUK ESTERASE 2+ (NEGATIVE); URINE NITRITE NEGATIVE (NEGATIVE); URINE PROTEIN NEGATIVE (NEGATIVE); URINE RBC 48 /uL (0-23.9); URINE UROBILINOGEN 0.2 mg/dL (0.2-1.0)
[2024-07-25 15:10] LABS: CALCIUM 8.8 mg/dL (8.5-10.1)
[2024-07-25 15:11] LABS: ALBUMIN 3.1 g/dl (3.4-5.0); BLOOD UREA NITROGEN 25.1 mg/dL (7-18)
[2024-07-25 15:14] LABS: CREATININE 0.9 mg/dL (0.55-1.3)
[2024-07-25 15:15] LABS: BILIRUBIN,TOTAL 0.4 mg/dL (0.2-1); TOT PROT 7.2 g/dl (6.4-8.2)
[2024-07-27] MEDS ORDERED: CALAMINE 8% TOPICAL LOTION 177 ML BOTTLE TP PRN (11:41)
[2024-07-27] MEDS ORDERED: NICOTINE POLACRILEX 4 MG GUM BUC PRN (11:44)
[2024-07-27 11:45] LABS: POTASSIUM 4.4 mmol/L (3.5-5.1)
[2024-07-27 11:54] LABS: ALBUMIN 3.5 g/dl (3.4-5.0); BLOOD UREA NITROGEN 26.4 mg/dL (7-18)
[2024-07-27 11:57] LABS: BILIRUBIN,TOTAL 0.3 mg/dL (0.2-1); CREATININE 0.8 mg/dL (0.55-1.3); TOT PROT 7.6 g/dl (6.4-8.2)
[2024-07-27 13:30] LABS: HEMATOCRIT 42.8 % (40.1-51.0); HEMOGLOBIN 13.4 g/dL (13.7-17.5); MCHC 31.3 g/dl (32.3-36.5); MEAN PLT VOLUME 10.4 fl (9.4-12.4); PLATELET COUNT 337 x10^3/uL (163-337); RDW 16.2 % (12.2-16.1)
[2024-07-27] MEDS: clonazePAM 1 MG ODT TABLETS SL PRN (16:48)
[2024-07-27] MEDS: BACITRACIN 0.9 GM PACKET TP SCH (21:45)
[2024-07-29] MEDS: IBUPROFEN 600 MG TABLET (FP) PO PRN (10:25)
[2024-07-30] MEDS: clonazePAM 1 MG ODT TABLETS SL PRN (18:52)
[2024-08-02] MEDS ORDERED: methaDONE HCL 40 MG DISPERSABLE TABLET PO SCH (07:00)
[2024-08-04] MEDS: clonazePAM 1 MG ODT TABLETS SL PRN (18:24)
[2024-08-07] MEDS: clonazePAM 1 MG ODT TABLETS SL PRN (17:14)
[2024-08-10] MEDS: clonazePAM 1 MG ODT TABLETS SL PRN (17:38)
[2024-08-11 06:54] VITALS: BP 118/84; PULSE 77; RESP 16; TEMP 97.7
== END 2024-08-11 10:10 | disposition home or self-care (01) | DRG 895 ==
LOC: YASAS 11:51 → Y3NR 15:20 → Y5N 07-25 12:07
PROVIDERS: ADMIT Psychiatry & Neurology Pain Medicine; ATTEND Allergy & Immunology
PROC: HZ42ZZZ Group Counseling for Substance Abuse Treatment, Cognitive-Behavioral (ICD-10-PCS; principal; 2024-07-22)
DX: F11.20 Opioid dependence, uncomplicated (principal); F19.280 Other psychoactive substance dependence with psychoactive substance-induced anxiety disorder; Z59.02 Unsheltered homelessness; F10.20 Alcohol dependence, uncomplicated; F17.210 Nicotine dependence, cigarettes, uncomplicated; F43.10 Post-traumatic stress disorder, unspecified; F41.9 Anxiety disorder, unspecified; L29.9 Pruritus, unspecified; R74.01 Elevation of levels of liver transaminase levels; Z62.810 Personal history of physical and sexual abuse in childhood; Z87.820 Personal history of traumatic brain injury
CPT/HCPCS: 0241U-QW; 36415; 71045-TC-FY; 80053; 80305; 80307; 81003; 85025; 85027; 86780; 86803; 87086; 87491; 87522; 87591; 87811; 93005; 93010

== ENCOUNTER 2024-11-30 11:52 | Inpatient (IN) | payer OTHER ==
[2024-11-30 12:24] VITALS: BMI 25.7
[2024-11-30] MEDS ORDERED: MAGNESIUM HYDROX 2400MG/30ML ORAL SUSPENSION 30 ML CUP PO PRN (12:45)
[2024-11-30] MEDS ORDERED: IBUPROFEN 600 MG TABLET (FP) PO PRN (12:45)
[2024-11-30] MEDS ORDERED: MAG HYDROX/AL HYDROX/SIMETH 30 ML UNIT-DOSE CUP PO PRN (12:45)
[2024-11-30] MEDS ORDERED: BENZONATATE 200 MG CAPSULE PO PRN (12:45)
[2024-11-30] MEDS ORDERED: ONDANSETRON *ODT* 4 MG TABLET SL PRN (12:45)
[2024-11-30] MEDS ORDERED: ACETAMINOPHEN 325 MG TABLET (FP) PO PRN (12:45)
[2024-11-30] MEDS ORDERED: BISMUTH SUBSALICYLATE 524 MG/30 ML PO PRN (12:45)
[2024-11-30] MEDS ORDERED: LOPERAMIDE HCL 2 MG CAPSULE PO PRN (12:45)
[2024-11-30] MEDS ORDERED: IBUPROFEN 400 MG TABLET (FP) PO PRN (12:45)
[2024-11-30] MEDS ORDERED: guaiFENesin 600 MG TABLET.ER (FP) PO PRN (12:45)
[2024-11-30] MEDS ORDERED: DICYCLOMINE HCL 10 MG CAPSULE PO PRN (12:45)
[2024-11-30] MEDS ORDERED: BENZOCAINE/MENTHOL (CHLORASEPTIC ) LOZENGE MM PRN (12:45)
[2024-11-30] MEDS ORDERED: NALOXONE (NARCAN) HCL 4 MG/0.1 ML SPRAY NS PRN (12:45)
[2024-11-30] MEDS ORDERED: POLYETHYLENE GLYCOL (HEALTHYLAX) 3350 17 GM PACKET PO PRN (12:45)
[2024-11-30] MEDS ORDERED: hydrOXYzine PAMOATE 25 MG CAPSULE (FP) PO PRN (12:45)
[2024-11-30] MEDS ORDERED: GABAPENTIN 100 MG CAPSULE ONE (14:28)
[2024-11-30] MEDS ORDERED: PRENATAL VITAMINS W/ FOLIC ACID TABLET (FP) PO ONE (14:38)
[2024-11-30] MEDS: GABAPENTIN 100 MG CAPSULE PO SCH (14:40)
[2024-11-30] MEDS: PRENATAL VITAMINS W/ FOLIC ACID TABLET (FP) PO SCH (14:40)
[2024-11-30] MEDS: NICOTINE 7 MG/24 HOURS TOPICAL PATCH TD SCH (14:49)
[2024-11-30] MEDS: ACAMPROSATE CALCIUM 333 MG TABLET.DR PO SCH (15:11)
[2024-11-30] MEDS: THIAMINE 100 MG TABLET PO SCH (22:16)
[2024-11-30] MEDS: MELATONIN 5 MG TABLETS PO SCH (22:17)
[2024-11-30] MEDS: BACITRACIN 0.9 GM PACKET TP SCH (22:17)
[2024-12-01] MEDS: clonazePAM 0.5 MG ODT TABLETS SL SCH (10:12)
[2024-12-01 11:43] LABS: MCHC 32.1 g/dl (32.3-36.5); MEAN CELL VOLUME 87.5 fl (79.0-92.2); MEAN PLT VOLUME 12.3 fl (9.4-12.4); RDW 14.6 % (12.2-16.1)
[2024-12-01 11:52] LABS: CO2 30 mmol/L (21-32); GLUCOSE,RANDOM 113 mg/dL (74-106)
[2024-12-01 11:54] LABS: CREATININE 1.0 mg/dL (0.55-1.3); SGOT/AST 45 U/L (15-37); SGPT/ALT 43 U/L (13-61)
[2024-12-01 11:55] LABS: TOT PROT 8.4 g/dl (6.4-8.2)
[2024-12-01 11:57] LABS: ALK PHOS 69 U/L (45-117)
[2024-12-01] MEDS: METHOCARBAMOL 500 MG TABLET PO PRN (17:22)
[2024-12-01] MEDS ORDERED: SUVOREXANT 10 MG TABLET PO PRN (22:00)
[2024-12-01] MEDS: SUVOREXANT 10 MG TABLET PO PRN (22:28)
[2024-12-02] MEDS: PATIENT'S OWN MEDICATION (NON-FORMULARY) (Tenofovir Alafenamide 25 MG Tablet) PO SCH (13:23)
[2024-12-05 06:29] VITALS: RESP 16
[2024-12-05 08:35] VITALS: BP 143/91; PULSE 72; TEMP 98.2
== END 2024-12-05 09:37 | disposition home or self-care (01) | DRG 897 ==
LOC: YASAS 11:52 → Y6N 14:46
PROVIDERS: ADMIT Allergy & Immunology; ATTEND Allergy & Immunology
PROC: HZ2ZZZZ Detoxification Services for Substance Abuse Treatment (ICD-10-PCS; principal; 2024-11-30)
DX: F11.23 Opioid dependence with withdrawal (principal); F43.10 Post-traumatic stress disorder, unspecified; K73.8 Other chronic hepatitis, not elsewhere classified; F17.210 Nicotine dependence, cigarettes, uncomplicated
CPT/HCPCS: 36415; 80053; 80305; 80307; 85027; 86780; 93005; 93010

== ENCOUNTER 2024-12-24 14:48 | Inpatient (IN) | payer OTHER ==
[2024-12-24] MEDS ORDERED: BENZOCAINE/MENTHOL (CHLORASEPTIC ) LOZENGE MM PRN (16:28)
[2024-12-24] MEDS ORDERED: ACETAMINOPHEN 325 MG TABLET (FP) PO PRN (16:28)
[2024-12-24] MEDS ORDERED: NALOXONE (NARCAN) HCL 4 MG/0.1 ML SPRAY NS PRN (16:28)
[2024-12-24] MEDS ORDERED: NICOTINE POLACRILEX 2 MG LOZENGE BC PRN (16:28)
[2024-12-24] MEDS ORDERED: LOPERAMIDE HCL 2 MG CAPSULE PO PRN (16:28)
[2024-12-24] MEDS ORDERED: METHOCARBAMOL 500 MG TABLET PO PRN (16:28)
[2024-12-24] MEDS ORDERED: DOCUSATE SODIUM 100 MG CAPSULE (FP) PO PRN (16:28)
[2024-12-24] MEDS ORDERED: POLYETHYLENE GLYCOL (HEALTHYLAX) 3350 17 GM PACKET PO PRN (16:28)
[2024-12-24] MEDS ORDERED: BISACODYL 5 MG TABLET.DR (FP) PO PRN (16:28)
[2024-12-24] MEDS ORDERED: BENZONATATE 200 MG CAPSULE PO PRN (16:28)
[2024-12-24] MEDS ORDERED: NALOXONE HCL 0.4 MG/ML VIAL IVPUSH PRN (16:28)
[2024-12-24] MEDS ORDERED: guaiFENesin 600 MG TABLET.ER (FP) PO PRN (16:28)
[2024-12-24] MEDS ORDERED: MAGNESIUM HYDROX 2400MG/30ML ORAL SUSPENSION 30 ML CUP PO PRN (16:28)
[2024-12-24] MEDS ORDERED: MAG HYDROX/AL HYDROX/SIMETH 30 ML UNIT-DOSE CUP PO PRN (16:28)
[2024-12-24] MEDS ORDERED: IBUPROFEN 600 MG TABLET (FP) PO PRN (16:28)
[2024-12-24 19:58] LABS: EPI CELLS 4 /uL (0-25.1); HYALINE CASTS 0 /uL (0-3.1); URINE APPEARANCE CLEAR; URINE BACTERIA 532 /uL (0-1359); URINE BILIRUBIN NEGATIVE (NEGATIVE); URINE COLOR YELLOW; URINE GLUCOSE (UA) NEGATIVE (NEGATIVE); URINE KETONE NEGATIVE (NEGATIVE); URINE LEUK ESTERASE 2+ (NEGATIVE); URINE NITRITE NEGATIVE (NEGATIVE); URINE PROTEIN NEGATIVE (NEGATIVE); URINE RBC 28 /uL (0-23.9); URINE UROBILINOGEN 0.2 mg/dL (0.2-1.0); URINE WBC 191 /uL (0-25.8)
[2024-12-24] MEDS: THIAMINE 100 MG TABLET PO SCH (22:39)
[2024-12-24] MEDS: MELATONIN 5 MG TABLETS PO SCH (22:39)
[2024-12-24] MEDS: clonazePAM 1 MG ODT TABLETS SL SCH (22:39)
[2024-12-24] MEDS: ACAMPROSATE CALCIUM 333 MG TABLET.DR PO SCH (22:39)
[2024-12-25] MEDS: methaDONE 200 MG, methaDONE 30 MG, methaDONE 5 MG PO SCH (06:06)
[2024-12-25] MEDS: PRENATAL VITAMINS W/ FOLIC ACID TABLET (FP) PO SCH (09:55)
[2024-12-25] MEDS: TENOFOVIR ALAFENAMIDE 25 MG PO SCH (09:55)
[2024-12-25] MEDS: IBUPROFEN 400 MG TABLET (FP) PO PRN (09:56)
[2024-12-25] MEDS ORDERED: PATIENT'S OWN MEDICATION (NON-FORMULARY) (Tenofovir Alafenamide 25 MG Tablet) PO SCH (10:00)
[2024-12-31] MEDS: NICOTINE POLACRILEX 2 MG GUM BUC PRN (15:18)
[2024-12-31] MEDS ORDERED: ONDANSETRON 8 MG TABLET (FP) PO ONE (15:21)
[2024-12-31] MEDS: ONDANSETRON 8 MG TABLET (FP) PO ONE (17:55)
[2025-01-02 05:15] VITALS: BP 126/91; PULSE 73; RESP 16; TEMP 97.3
== END 2025-01-02 09:55 | disposition left against medical advice (07) | DRG 894 ==
LOC: YASAS 14:48 → Y3NR 14:49 → Y3W 12-26 10:47
PROVIDERS: ADMIT Psychiatry & Neurology Pain Medicine; ATTEND Psychiatry & Neurology Pain Medicine
PROC: HZ42ZZZ Group Counseling for Substance Abuse Treatment, Cognitive-Behavioral (ICD-10-PCS; principal; 2024-12-24)
DX: F19.20 Other psychoactive substance dependence, uncomplicated (principal); F11.20 Opioid dependence, uncomplicated; F14.20 Cocaine dependence, uncomplicated; B19.10 Unspecified viral hepatitis B without hepatic coma; F10.20 Alcohol dependence, uncomplicated; F17.210 Nicotine dependence, cigarettes, uncomplicated; F43.10 Post-traumatic stress disorder, unspecified
CPT/HCPCS: 81003